=== PATIENT | male | born 1995 | race African-American/Black ===

== ENCOUNTER 2017-01-30 20:19 | Emergency (ER) | payer SELFPAY ==
--- NOTE | 2017-01-30 21:02 | ED Physician Chart ---
ED Chief Complaint/HPI - Patient Information Date Seen:: 01/30/17 Time Seen:: 20:45 Chief Complaint:: bilateral flank pain History of Present Illness:: Patient had bilateral flank pain for last 2 days. He's also had nausea vomiting and diarrhea. Patient's had no urine output for more than 5 days. He was hospitalized at [facility] 1 month ago for renal failure. He apparently left that facility AGAINST MEDICAL ADVICE after 2 day admission. Historian:: Patient, EMS Review:: Nurse's Note Reviewed ED Review of Systems - Review of Systems General/Constitutional: No fever, No chills Skin: No skin lesions Head: No headache Eyes: No loss of vision ENT: No earache Neck: No neck pain Cardio Vascular: No chest pain, No palpitations Pulmonary: No SOB GI: Nausea, Vomiting, Diarrhea G/U: No dysuria Musculoskeletal: Other (flank pain) Endocrine: No polyuria, No polydipsia Psychiatric: No prior psych history Hematopoietic: No bruising Allergic/Immuno: No urticaria Neurological: No syncope ED Past Medical History - Past Medical History Past Medical History: Other (renal failure) Family History: None Social History: Non Smoker, No Alcohol Surgical History: None Psychiatricy History: None Medication: None ED Physical Exam - Physical Examination General/Constitutional: Well-developed, well-nourished, Alert, No distress Other Gen/Cons comments:: dishevelled Head: Atraumatic Eyes: Lids, conjuctiva normal, PERRL Skin: Nl inspection, No rash ENMT: External ears, nose nl, TM canals nl, Nasal exam nl, Lips, teeth, gums nl Neck: No nuchal rigidity Respiratory: Nl effort/Exclusion, Clear to Auscultation Cardio Vascular: RRR, No murmur, gallop, rubs, NL S1 S2 GI: No tenderness/rebounding/guarding, No hernia Extremities: Normal digits & nails Neuro/Psych: Alert/oriented ED Labs/Radiology/EKG Results - Lab Results Results: Laboratory Results - last 24 hr 01/30/17 01/30/17 01/30/17 21:19 21:19 21:19 WBC 7.6 RBC 5.97 H Hgb 17.9 Hct 53.0 MCV 88.8 MCH 30.0 MCHC Differential 33.8 RDW 12.0 Plt Count 133 L MPV 9.9 Band Neutrophils % 8 Neutrophils (Manual) 70 Lymphocytes 18 L Monocytes 2 Eosinophils 2 Platelet Estimate DECREASED PLATELETS Platelet Morphology GIANT PLATELETS SEEN Sodium 131 L Potassium 3.6 Chloride 98 Carbon Dioxide 25.7 Anion Gap 10.9 BUN 17 Creatinine 0.8 Est GFR ( Amer) > 60.0 Est GFR (Non-Af Amer) > 60.0 BUN/Creatinine Ratio 21.3 Glucose 86 Calcium 8.8 Magnesium 1.7 L Creatine Kinase 136 ED Septic Shock - . Is Septic Shock (SBP<90, OR Lactate>4 mmol\L) present?: No ED Reassessment (Disposition) - Reassessment Reassessment Condition:: Improved - Diagnosis Diagnosis:: Musculoskeletal pain - Aftercare/Follow up Instructions Aftercare/Follow-Up Instructions:: Refer to Discharge Instructions - Patient Disposition Discharge/Transfer:: Home Condition at Disposition:: Stable, Unchanged
[2017-01-30] MEDS ORDERED: Sodium Chloride 0.9% 1,000 ML IV ONE (21:09)
[2017-01-30 21:33] LABS: HEMOGLOBIN 17.9 gm/dL (12-16); MEAN CELL VOLUME 88.8 fl (80-99); MEAN CORPUSCULAR HGB CONC 33.8 pg (28.0-36.0); MEAN PLATELET VOLUME 9.9 fl; PLATELET COUNT 133 Th/cmm (150-400); RED BLOOD COUNT 5.97 Mil/cmm (4.30-5.70); WHITE BLOOD COUNT 7.6 Th/cmm (4.8-10.8)
[2017-01-30 21:43] LABS: ANION GAP 10.9 (7.0-16.0); BUN - UREA NITROGEN 17 mg/dL (7-25); BUN/CREATININE RATIO 21.3; CALCIUM SERUM 8.8 mg/dL (8.6-10.3); CARBON DIOXIDE 25.7 mEq/L (21.0-31.0); CHLORIDE 98 mEq/L (98-107); CREATININE - SERUM 0.8 mg/dL (0.7-1.3); GLUCOSE 86 mg/dL (70-105); MAGNESIUM 1.7 mg/dL (1.9-2.7); POTASSIUM SERUM 3.6 mEq/L (3.5-5.1); SODIUM SERUM 131 mEq/L (136-145)
[2017-01-30 21:49] LABS: BAND NEUTROPHILE 8 % (0-10); EOSINOPHIL 2 % (0-5); NEUTROPHILS 70 % (40-80); PLATELET ESTIMATE DECREASED PLATELETS (NORMAL); PLATELET MORPHOLOGY GIANT PLATELETS SEEN (NORMAL); TOTAL CELLS COUNTED 100
== END 2017-01-31 07:10 | disposition home or self-care (01) ==
LOC: ER 20:19 → EDBD 20:19 → ER 01-31 07:10
DX: M79.1 Myalgia (principal)
CPT/HCPCS: 36415-UA; 80048-TC; 82550-TC; 83735-TC; 85007-TC; 85027-TC; Z7502